=== PATIENT | female | born 1970 | race Caucasian/White ===

== ENCOUNTER → 2020-01-02 | Outpatient (CLI) | payer OTHER ==
--- NOTE | 2020-01-02 11:29 | Diagnostic Imaging Report ---
EXAM: CERVICAL SPINE 4 OR 5 VIEWS DATE: 01/02/2020 10:48 AM INDICATION: Pain, degenerative disc disease COMPARISON: None FINDINGS: The cervical spine is visualized through the top of T1. Cervical spinal alignment is within normal limits. There is no evidence for acute fracture or dislocation. Vertebral body heights are maintained. The dens as well as lateral masses are unremarkable. There are mild degenerative changes of the cervical spine without radiographic evidence for neural foraminal narrowing. The prevertebral soft tissues are unremarkable. IMPRESSION: No acute radiographic abnormality identified within the cervical spine. Mild degenerative changes. Signed by: Dr. Candelario Mansfield MD on 01/02/2020 11:26 AM
--- NOTE | 2020-01-02 11:32 | Diagnostic Imaging Report ---
EXAM: SP LUMBAR, COMPLETE MIN 4VW DATE: 01/02/2020 10:48 AM INDICATION: Pain, degenerative disc disease COMPARISON: None FINDINGS: There are 5 nonrib-bearing lumbar-type vertebral bodies. There is no evidence for acute fracture or dislocation. Lumbar spinal alignment is within normal limits. Vertebral body heights and intervertebral disc space heights are maintained. No focal lytic or blastic abnormality is identified. There are mild degenerative changes of the lower lumbar spine, most prominent at L5-S1. The surrounding soft tissues are unremarkable. The visualized intra-abdominal contents demonstrate no significant abnormalities. IMPRESSION: No acute radiographic abnormality identified within the lumbar spine. Signed by: Dr. Candelario Mansfield MD on 01/02/2020 11:29 AM
== END ==
LOC: RAD 10:30
PROVIDERS: ATTEND Family Medicine
DX: M51.36 Other intervertebral disc degeneration, lumbar region (principal); M54.2 Cervicalgia; G89.29 Other chronic pain
CPT/HCPCS: 72050; 72110